=== PATIENT | male | born 1955 | race Caucasian/White ===

== ENCOUNTER 2022-04-25 09:12 | Inpatient (IN) | payer OTHER, MEDICAID ==
[~2022-04-25] VITALS: Ht 167.6 cm; Wt 70.1 kg
[2022-04-25] MEDS ORDERED: IOHEXOL 300 MG/ML 100ML BOTTLE IJ ONE (09:55)
[2022-04-25 10:04] LABS: Basophils # (auto) 0.1 10 ^3/uL (0-0.2); Basophils % (auto) 0.8 % (0.0-2.0); Eosinophils # (auto) 0.1 10 ^3/uL (0-0.8); Hematocrit 43.9 % (41.0-53.0); Hemoglobin 14.9 g/dL (13.5-17.5); Mean Corpuscular Hemoglobin 29.7 pg (28.0-32.0); Mean Corpuscular Hgb Conc. 33.9 g/dL (32.0-36.0); Mean Corpuscular Volume 87.7 fL (80.0-100.0); Monocytes # (auto) 0.7 10 ^3/uL (0-1.3); Monocytes % (auto) 10.3 % (0.0-12.0); Neutrophils % (auto) 71.9 % (37.0-80.0); Nucleated Red Blood Cells % 0.1 %; Red Blood Cells 5.01 10^6/uL (4.5-5.90); White Blood Cell 6.9 10^3/uL (4.4-10.8)
[2022-04-25 10:22] LABS: Albumin 5.1 g/dL (3.4-5.0); Anion Gap 7 (5-15); Blood Alcohol < 3.0 mg/dL (0-5); Blood Urea Nitrogen 49 mg/dL (7-18); Carbon Dioxide 24 mmol/L (21-32); Chloride 109 mmol/L (98-107); Glucose 115 mg/dL (74-106); Magnesium 2.6 mg/dL (1.6-2.6); Potassium 4.4 mmol/L (3.5-5.1); Sodium 140 mmol/L (136-145)
[2022-04-25 10:25] LABS: Alanine Aminotransferase 39 U/L (16-61); Alkaline Phosphatase 50 U/L (45-117); Aspartate Aminotransferase 28 U/L (15-37); BUN/Creatinine Ratio 15.9; Bilirubin, Total 0.6 mg/dL (0.2-1.0); GFR African American 26 mL/min; GFR Non-African American 22 mL/min; Total Protein 8.8 g/dL (6.4-8.2)
[2022-04-25 10:38] LABS: INR 1.03 (0.9-1.15); Partial Thromboplastin Time 25.8 sec (24.6-33.4)
[2022-04-25] MEDS ORDERED: LACTATED RINGER'S 1,000 ML IV ONE (11:15)
[2022-04-25] MEDS ORDERED: AMLO-496 PO (13:11)
[2022-04-25 13:12] LABS: Urine Bacteria NONE SEEN /hpf (None Seen); Urine Blood Negative /uL (Negative); Urine Specific Gravity 1.023 (1.001-1.035); Urine WBC <1 /hpf (0 - 3)
[2022-04-25] MEDS ORDERED: NITROGLYCERIN 0.4 MG SL TAB SL PRN (13:15)
[2022-04-25] MEDS ORDERED: MORPHINE SULFATE INJ 2 MG/ml SYRG IV PRN (13:15)
[2022-04-25] MEDS ORDERED: hydrALAZINE HCL 20 MG/ML VL IV PRN (13:15)
[2022-04-25 13:30] LABS: Alcohol, Urine < 3.0 mg/dL (0-10); Amphetamine Screen, Urine NEGATIVE (NEGATIVE); Barbiturate Scree,Urine NEGATIVE (NEGATIVE); Benzodiazephine Screen, Urine NEGATIVE (NEGATIVE); Cannabinoid Screen, Urine NEGATIVE (NEGATIVE); Cocaine Screen, Urine NEGATIVE (NEGATIVE); Opiate Scree,Urine NEGATIVE (NEGATIVE); Phencyclidine Screen, Urine NEGATIVE (NEGATIVE)
[2022-04-25 13:49] LABS: Cholesterol 205 mg/dL (< 200)
[2022-04-25 13:52] LABS: HDL Cholesterol 56 mg/dL (40-59); LDL Cholesterol 132 mg/dL (< 100); Triglycerides 78 mg/dL (< 150)
[2022-04-25] MEDS: SODIUM CHLORIDE 0.9% 1,000 ML IV SCH ×2 (14:17→21:15)
[2022-04-25] MEDS ORDERED: LORazepam 2MG/ML-1ML VIAL IV PRN (22:30)
[2022-04-25 22:54] LABS: Folate (Folic Acid) 13.93 ng/mL (5.38-24)
[2022-04-25] MEDS: ATORVASTATIN 20 MG TAB PO SCH (23:02)
[2022-04-26] MEDS ORDERED: PREGABALIN CAPSULE 75 MG CAP PO ONE (00:30)
[2022-04-26] MEDS: SODIUM CHLORIDE 0.9% 1,000 ML IV SCH ×4 (05:15→23:44)
[2022-04-26 06:25] LABS: Basophils # (auto) 0.1 10 ^3/uL (0-0.2); Basophils % (auto) 0.7 % (0.0-2.0); Eosinophils # (auto) 0.2 10 ^3/uL (0-0.8); Eosinophils % (auto) 2.1 % (0.0-7.0); Hematocrit 41.6 % (41.0-53.0); Hemoglobin 14.3 g/dL (13.5-17.5); Lymphocytes # (auto) 1.5 10 ^3/uL (0.4-5.4); Lymphocytes % (auto) 17.6 % (10.0-50.0); Mean Corpuscular Hemoglobin 29.9 pg (28.0-32.0); Mean Corpuscular Hgb Conc. 34.3 g/dL (32.0-36.0); Monocytes % (auto) 11.6 % (0.0-12.0); Neutrophils # (auto) 5.8 10 ^3/uL (1.6-8.6); Red Blood Cells 4.78 10^6/uL (4.5-5.90); Red Cell Distribution Width 14.4 % (11.8-14.3); White Blood Cell 8.5 10^3/uL (4.4-10.8)
[2022-04-26 06:41] LABS: Potassium 4.9 mmol/L (3.5-5.1)
[2022-04-26 06:52] LABS: Albumin 4.3 g/dL (3.4-5.0); BUN/Creatinine Ratio 20.7; Bilirubin, Total 0.4 mg/dL (0.2-1.0); Calcium 10.2 mg/dL (8.5-10.1); Total Protein 8.3 g/dL (6.4-8.2)
[2022-04-26] MEDS: amLODIPine BESYLATE 5 MG TAB PO SCH (10:19)
[2022-04-26] MEDS: ENOXAPARIN SOD 30 MG/0.3 ML SYRINGE SC SCH (10:19)
[2022-04-26] MEDS: ASPirin 81 mg TAB PO SCH (10:20)
[2022-04-26] MEDS: PANTOPRAZOLE 40 MG/10 ML VIAL INJ IV SCH (10:20)
[2022-04-26 12:59] VITALS: BP 132/71
[2022-04-26 16:30] VITALS: BP 145/81
[2022-04-26] MEDS ORDERED: CEPH500C PO (18:13)
[2022-04-26 22:00] VITALS: BP 124/79
[2022-04-26] MEDS: ATORVASTATIN 20 MG TAB PO SCH (22:29)
[2022-04-27 05:00] VITALS: BP 120/73
[2022-04-27] MEDS: PANTOPRAZOLE 40 MG/10 ML VIAL INJ IV SCH (08:33)
[2022-04-27] MEDS: ASPirin 81 mg TAB PO SCH (08:33)
[2022-04-27] MEDS: amLODIPine BESYLATE 5 MG TAB PO SCH (08:34)
[2022-04-27] MEDS: ENOXAPARIN SOD 30 MG/0.3 ML SYRINGE SC SCH (08:34)
[2022-04-27 09:00] VITALS: BP 146/87
[2022-04-27 10:45] LABS: Calcium 10.2 mg/dL (8.5-10.1); Potassium 4.4 mmol/L (3.5-5.1)
[2022-04-27 13:00] VITALS: BP 114/70
[2022-04-27 15:19] VITALS: BP 114/70
[2022-04-27 17:00] VITALS: BP 117/75
== END 2022-04-27 17:30 | disposition home or self-care (01) | DRG 100 ==
LOC: ER 09:12 → TELE 13:10 → TELE-WESTW 04-26 09:28
PROVIDERS: ADMIT Registered Nurse; ATTEND Nurse Practitioner Acute Care
DX: G40.209 Localization-related (focal) (partial) symptomatic epilepsy and epileptic syndromes with complex partial seizures, not intractable, without status epilepticus (principal); G92.8 Other toxic encephalopathy; N17.9 Acute kidney failure, unspecified; K22.70 Barrett's esophagus without dysplasia; M48.02 Spinal stenosis, cervical region; Z20.822 Contact with and (suspected) exposure to COVID-19; E66.9 Obesity, unspecified; E83.52 Hypercalcemia; I12.9 Hypertensive chronic kidney disease with stage 1 through stage 4 chronic kidney disease, or unspecified chronic kidney disease; G89.4 Chronic pain syndrome; Z68.24 Body mass index [BMI] 24.0-24.9, adult; N18.32 Chronic kidney disease, stage 3b; Z82.49 Family history of ischemic heart disease and other diseases of the circulatory system; Z85.46 Personal history of malignant neoplasm of prostate; Z87.442 Personal history of urinary calculi; Z87.891 Personal history of nicotine dependence; Z96.649 Presence of unspecified artificial hip joint; K21.9 Gastro-esophageal reflux disease without esophagitis
CPT/HCPCS: 36415; 36600; 70450; 70496; 70551; 71045; 80048; 80053; 80061; 80307; 80320; 80329; 81001; 82140; 82607; 82746; 82805; 83036; 83735; 83880; 84443; 84484; 85025; 85610; 85730; 87426; 93005; 93306; 93886; 95819; 96360; 96361; C9113; G0378

== ENCOUNTER 2023-11-15 06:10 | Day surgery (SDC) | payer OTHER, MEDICAID ==
[2023-11-13 11:56] LABS: Urine Bacteria None Seen /hpf (None Seen)
[2023-11-13 12:19] LABS: Basophils # (auto) 0.1 10 ^3/uL (0-0.2); Basophils % (auto) 0.8 % (0.0-2.0); Eosinophils # (auto) 0.1 10 ^3/uL (0-0.8); Eosinophils % (auto) 1.4 % (0.0-7.0); Hematocrit 48.2 % (41.0-53.0); Hemoglobin 16.9 g/dL (13.5-17.5); Lymphocytes # (auto) 1.8 10 ^3/uL (0.4-5.4); Lymphocytes % (auto) 18.3 % (10.0-50.0); Mean Corpuscular Hemoglobin 31.4 pg (28.0-32.0); Mean Corpuscular Hgb Conc. 35.1 g/dL (32.0-36.0); Mean Corpuscular Volume 89.6 fL (80.0-100.0); Monocytes # (auto) 0.8 10 ^3/uL (0-1.3); Monocytes % (auto) 8.4 % (0.0-12.0); Neutrophils # (auto) 6.9 10 ^3/uL (1.6-8.6); Neutrophils % (auto) 71.1 % (37.0-80.0); Platelet Count (auto) 323 10^3/uL (140-450); Red Blood Cells 5.38 10^6/uL (4.5-5.90); White Blood Cell 9.7 10^3/uL (4.4-10.8)
[2023-11-13 12:22] LABS: Urine Blood Negative /uL (Negative); Urine Clarity Clear (Clear); Urine Color Light-Yellow (Yellow); Urine Protein, UAD Negative (Negative); Urine Specific Gravity 1.011 (1.001-1.035); Urine Urobilinogen Normal (Negative); Urine WBC <1 /hpf (0 - 3); Urine pH 6.5 (5.0-9.0)
[2023-11-13 12:32] LABS: INR 1.02 (0.9-1.15); Partial Thromboplastin Time 26.8 SEC (24.5-34.5); Prothrombin Time 10.8 sec (9.3-11.8)
[2023-11-13 12:39] LABS: Alanine Aminotransferase 29 U/L (7-40); Albumin 4.9 g/dL (3.2-4.8); Alkaline Phosphatase 49 U/L (46-116); Anion Gap 6 (5-15); Aspartate Aminotransferase 21 U/L (13-40); BUN/Creatinine Ratio 13.7 (10.0-20.0); Blood Urea Nitrogen 28 mg/dL (9-23); Calcium 10.5 mg/dL (8.7-10.4); Carbon Dioxide 26 mmol/L (20-30); Chloride 104 mmol/L (98-107); Glucose 104 mg/dL (74-106); Potassium 4.4 mmol/L (3.5-5.1); Sodium 136 mmol/L (136-145)
[2023-11-13 12:40] LABS: Bilirubin, Total 0.4 mg/dL (0.2-1.0); Total Protein 7.8 g/dL (5.7-8.2)
[~2023-11-15] VITALS: Ht 167.6 cm; Wt 77.1 kg
[~2023-11-15 06:10] MED LIST: ACET-1304 PO; AMLO1TAB23 PO; ASPI81CH59 PO; CYAN-17 PO; FERR325T20 PO; HYDR-4072 PO; PANT40TA2 PO; PREG75CA PO
[2023-11-15] MEDS ORDERED: LIDOCAINE 2% JELLY 11ml (GLYDO) ONE (07:09)
[2023-11-15] MEDS ORDERED: fentaNYL CITRATE 100 MCG/2 ML VL ONE (07:29)
[2023-11-15] MEDS ORDERED: MEPERIDINE HCL (50 MG/ML) 1 ML VIAL ONE (07:29)
[2023-11-15] MEDS ORDERED: MIDAZOLAM HCL 2MG/2ML 2ml VIAL (1mg/ml) ONE (07:30)
[2023-11-15] MEDS: ceFAZolin 2 GM/D5W50ml 50 ML IV ONE (07:34)
[2023-11-15] MEDS ORDERED: SUCCINYLCHOLINE CHLORIDE 20 MG/ML 10ML VIAL IV ONE (07:38)
[2023-11-15] MEDS: BUPIVACAINE 0.25% INJ 50ML VIAL ONE (07:51)
[2023-11-15] MEDS: LIDOCAINE W/ EPINEPHRINE 1% 20ML VIAL ONE (07:51)
[2023-11-15] MEDS ORDERED: MIDAZOLAM HCL 2MG/2ML 2ml VIAL (1mg/ml) IV PRN (08:00)
[2023-11-15] MEDS ORDERED: ONDANSETRON HCL 4 MG/2 ML VIAL IV ONE (08:00)
[2023-11-15] MEDS ORDERED: MORPHINE SULFATE 4 MG/ML SYR/VIAL IV PRN (08:00)
[2023-11-15] MEDS ORDERED: HYDROmorphone HCL 2 MG/ML VL/or syr IV PRN (08:00)
[2023-11-15] MEDS ORDERED: hydrALAZINE HCL 20 MG/ML VL IV PRN (08:00)
[2023-11-15] MEDS ORDERED: ePHEDrine SULFATE 50 MG/ML AMP IV PRN (08:00)
[2023-11-15] MEDS ORDERED: PROPOFOL 10 MG/ML 20 ML IV ONE (08:01)
[2023-11-15] MEDS ORDERED: DexAMETHasone SOD PHOS 10MG/1ML VIAL INJ ONE (08:01)
[2023-11-15 08:30] VITALS: RESP 12; TEMP 97; O2SAT 94
[2023-11-15 09:03] VITALS: BP 122/71; PULSE 72; RESP 16; O2SAT 94
== END 2023-11-15 09:20 | disposition home or self-care (01) ==
LOC: SUR 06:10
PROVIDERS: ATTEND Surgery
DX: K42.0 Umbilical hernia with obstruction, without gangrene (principal); I12.9 Hypertensive chronic kidney disease with stage 1 through stage 4 chronic kidney disease, or unspecified chronic kidney disease; N18.30 Chronic kidney disease, stage 3 unspecified; K21.9 Gastro-esophageal reflux disease without esophagitis; G43.909 Migraine, unspecified, not intractable, without status migrainosus; F32.A Depression, unspecified; Z79.82 Long term (current) use of aspirin; Z96.642 Presence of left artificial hip joint; Z98.890 Other specified postprocedural states
CPT/HCPCS: 36415; 49592; 80053; 81001; 85025; 85610; 85730; 86850; 86900; 86901; 88304; J0330; J0690; J1100; J2175; J2250; J2704; J3010; J3490